=== PATIENT | female | born 1980 | race Caucasian/White ===

== ENCOUNTER 2021-10-09 19:49 | Emergency (ER) | payer BC ==
[2021-10-09 20:20] VITALS: BMI 24.3
[2021-10-09] MEDS ORDERED: SUCRALFATE 1 GM/10 ML UNIT DOSE CUPS PO ONE (22:01)
[2021-10-09] MEDS ORDERED: ACETAMINOPHEN 500 MG TABLET (FP) PO ONE (22:04)
[2021-10-09] MEDS ORDERED: MAG HYDROX/AL HYDROX/SIMETH 30 ML UNIT-DOSE CUP PO ONE (22:04)
[2021-10-09] MEDS ORDERED: ACETAMINOPHEN 325 MG TABLET (FP) ONE (22:14)
[2021-10-09] MEDS ORDERED: MAG HYDROX/AL HYDROX/SIMETH 30 ML UNIT-DOSE CUP ONE (22:15)
[2021-10-09] MEDS ORDERED: SUCRALFATE 1 GM TABLET (FP) ONE (22:15)
[2021-10-09] MEDS ORDERED: ONDANSETRON 4 MG/2 ML VIAL IVPUSH ONE (22:18)
[2021-10-09] MEDS ORDERED: SODIUM CHLORIDE 1,000 ML IV STA (22:18)
[2021-10-09 22:26] LABS: BASO % 0.3 % (0-2.0); EOS % 0.1 % (0-4.5); HEMATOCRIT 35.6 % (32.4-45.2); HEMOGLOBIN 12.2 GM/dL (10.7-15.3); LYMPH % 9.9 % (8-40); MCH 29.9 pg (25.7-33.7); MCHC 34.4 g/dl (32.0-36.0); MEAN CELL VOLUME 86.9 fl (80-96); MONO % 5.3 % (3.8-10.2); NEUT % 84.4 % (42.8-82.8); PLATELET COUNT 218 10^3/uL (134-434); RBC 4.09 M/mm3 (3.60-5.2); RDW 12.7 % (11.6-15.6); WHITE BLOOD COUNT 14.8 K/mm3 (4.0-10.0)
[2021-10-09] MEDS ORDERED: ONDANSETRON 4 MG/2 ML VIAL ONE (22:30)
[2021-10-09 22:37] LABS: INR 1.23 (0.83-1.09); PROTHROMBIN TIME (PATIENT) 13.8 SEC (9.7-13.0)
[2021-10-09 22:39] LABS: ACTIVATED PTT 29.2 SECONDS (25.2-36.5)
[2021-10-09 22:46] LABS: CHLORIDE 103 mmol/L (98-107); SODIUM 138 mmol/L (136-145)
[2021-10-09 22:48] LABS: ALBUMIN 3.4 g/dl (3.4-5.0); ANION GAP 11 MMOL/L (8-16); BLOOD UREA NITROGEN 3.6 mg/dL (7-18); CALCIUM 8.8 mg/dL (8.5-10.1); CO2 25 mmol/L (21-32); GLUCOSE,RANDOM 127 mg/dL (74-106)
[2021-10-09 22:51] LABS: CREATININE 0.6 mg/dL (0.55-1.3); SGOT/AST 16 U/L (15-37); SGPT/ALT 107 U/L (13-61)
[2021-10-09 22:53] LABS: BILIRUBIN,TOTAL 0.6 mg/dL (0.2-1); TOT PROT 7.4 g/dl (6.4-8.2)
[2021-10-09 22:54] LABS: ALK PHOS 121 U/L (45-117)
[2021-10-09 23:27] LABS: EPI CELLS 7 /uL (0-25.1); HYALINE CASTS 0 /uL (0-3.1); URINE APPEARANCE CLEAR; URINE BACTERIA 905 /uL (0-1359); URINE BILIRUBIN NEGATIVE (NEGATIVE); URINE COLOR YELLOW; URINE GLUCOSE (UA) NEGATIVE (NEGATIVE); URINE KETONE NEGATIVE (NEGATIVE); URINE LEUK ESTERASE TRACE (NEGATIVE); URINE NITRITE NEGATIVE (NEGATIVE); URINE PROTEIN TRACE (NEGATIVE); URINE RBC 2 /uL (0-23.9); URINE WBC 2 /uL (0-25.8)
[2021-10-10] MEDS ORDERED: SODIUM CHLORIDE 500 ML IV STA (01:08)
[2021-10-10 02:16] VITALS: BP 122/78; PULSE 78; TEMP 98.2
== END 2021-10-10 02:16 ==
LOC: JER 19:49
PROC: 3E033NZ Introduction of Analgesics, Hypnotics, Sedatives into Peripheral Vein, Percutaneous Approach (ICD-10-PCS; principal; 2021-10-09)
PROC: 3E0337Z Introduction of Electrolytic and Water Balance Substance into Peripheral Vein, Percutaneous Approach (ICD-10-PCS; 2021-10-09)
PROC: 3E0337Z Introduction of Electrolytic and Water Balance Substance into Peripheral Vein, Percutaneous Approach (ICD-10-PCS; 2021-10-09)
DX: K80.51 Calculus of bile duct without cholangitis or cholecystitis with obstruction (principal); R10.13 Epigastric pain
CPT/HCPCS: 36415; 76705-TC; 80053; 81003; 82550; 83605; 83690; 84484; 85025; 85610; 85730; 86850; 86900; 86901; 87086; 93005; 93010; 99284-25

== ENCOUNTER 2021-11-19 04:28 | Day surgery (SDC) | payer BC ==
[2021-11-18 15:16] VITALS: BMI 24.0
[2021-11-19] MEDS ORDERED: BUPIVACAINE HCL/PF 0.5% (5MG/ML) 10 ML VIAL ONE ×2 (12:57→15:13)
[2021-11-19] MEDS ORDERED: oxyCODONE HCL 5 MG TABLET PO PRN ×2 (14:49)
[2021-11-19] MEDS ORDERED: ONDANSETRON 4 MG/2 ML VIAL IVPUSH PRN (14:49)
[2021-11-19] MEDS ORDERED: LACTATED RINGERS SOLUTION 1,000 ML IV SCH (15:00)
[2021-11-19] MEDS ORDERED: DEXAMETHASONE SOD PHOSPHATE 4 MG/1 ML VIAL ONE (15:18)
[2021-11-19] MEDS ORDERED: PROPOFOL 20 ML ONE (15:18)
[2021-11-19] MEDS ORDERED: KETOROLAC TROMETHAMINE 30 MG/1 ML VIAL ONE (15:18)
[2021-11-19] MEDS ORDERED: LIDOCAINE HCL/PF 2% SDV 5ML VIAL ONE ×2 (15:18→15:20)
[2021-11-19] MEDS ORDERED: MIDAZOLAM HCL 2 MG/2 ML SINGLE DOSE VIAL ONE (15:19)
[2021-11-19] MEDS ORDERED: ROCURONIUM BROMIDE 100 MG/10 ML VIAL ONE ×2 (15:19→16:04)
[2021-11-19] MEDS ORDERED: ceFAZolin SODIUM 1 GM VIAL ONE (15:20)
[2021-11-19] MEDS ORDERED: BUPIVACAINE HCL/PF 0.5% (5MG/ML) 10 ML VIAL IJ ONE (15:45)
[2021-11-19] MEDS ORDERED: ceFAZolin SODIUM 1 GM VIAL IVPB ONE (15:50)
[2021-11-19] MEDS ORDERED: ONDANSETRON 4 MG/2 ML VIAL ONE (18:45)
[2021-11-19] MEDS ORDERED: oxyCODONE HCL 5 MG TABLET PO ONE (19:12)
[2021-11-19] MEDS ORDERED: oxyCODONE HCL 5 MG TABLET ONE (19:15)
[2021-11-19 19:23] VITALS: TEMP 98.3
[2021-11-19 19:50] VITALS: BP 125/72; PULSE 88
== END 2021-11-19 19:50 | disposition home or self-care (01) ==
LOC: JASU-SURG 04:28
PROVIDERS: ATTEND Surgery
PROC: 0FT44ZZ Resection of Gallbladder, Percutaneous Endoscopic Approach (ICD-10-PCS; principal; 2021-11-19 14:30)
DX: K80.10 Calculus of gallbladder with chronic cholecystitis without obstruction (principal)
CPT/HCPCS: 81025; 94760